=== PATIENT | male | born 1965 | race Caucasian/White ===

== ENCOUNTER → 2016-12-12 | Outpatient (CLI) | payer BC ==
[2016-12-12 21:22] LABS: Basophils % (A) 1 %; CH 27.8; CHCM 32.1; Eosinophils # (A) 0.1 k/uL (0-0.7); Eosinophils % (A) 2 %; HDW 2.66; HGB 14.5 gm/dL (13.0-17.5); Luc % (Auto) 2; Lymphocytes % (A) 15 %; MCH 27.5 pg (25.0-35.0); MCHC 31.6 g/dL (31.0-37.0); MCV 86.9 fL (80.0-100.0); Mean Platelet Volume 9.5; Monocytes # (A) 0.3 k/uL (0-1.0); Monocytes % (A) 5 %; Neutrophils # (A) 4.7 k/uL (1.3-7.7); Neutrophils % (A) 75 %; RDW 12.1 % (11.5-15.5); WBC 6.3 k/uL (3.8-10.6); WBC (Perox) 6.61
[2016-12-12 21:32] LABS: ALT 51 U/L (21-72); AST 23 U/L (17-59); Alkaline Phosphatase 111 U/L (38-126); Anion Gap 14 mmol/L; Blood Urea Nitrogen 13 mg/dL (9-20); Calcium 9.7 mg/dL (8.4-10.2); Carbon Dioxide 27 mmol/L (22-30); Chloride 96 mmol/L (98-107); Cholesterol 170 mg/dL (<200); HDL Cholesterol 65 mg/dL (40-60); Non-African American GFR(MDRD) >60 (>60 ml/min/1.73 sqM); Sodium 137 mmol/L (137-145); Total Bilirubin 0.8 mg/dL (0.2-1.3); Total Protein 7.3 g/dL (6.3-8.2); Triglycerides 63 mg/dL (<150)
[2016-12-12 21:39] LABS: Glucose 500 mg/dL (74-99)
[2016-12-12 22:03] LABS: Hemoglobin A1C 13.6 % (4.2-6.1)
== END | disposition home or self-care (01) ==
LOC: MMGSC 11:13
PROVIDERS: ATTEND Family Medicine
DX: Z00.00 Encounter for general adult medical examination without abnormal findings (principal); Z12.5 Encounter for screening for malignant neoplasm of prostate; E11.9 Type 2 diabetes mellitus without complications; M27.2 Inflammatory conditions of jaws
CPT/HCPCS: 84439; 80053; 80061; 83036; 84443; 85025; 82043; 87070; 87205; 87075; 36415; G0103

== ENCOUNTER → 2017-03-12 | Outpatient (CLI) | payer BC ==
[2017-03-12 20:25] LABS: Hemoglobin A1C 8.3 % (4.2-6.1)
== END ==
LOC: MMGSC 11:36
PROVIDERS: ATTEND Family Medicine
DX: E11.9 Type 2 diabetes mellitus without complications (principal)
CPT/HCPCS: 36415; 83036

== ENCOUNTER → 2017-06-13 | Outpatient (CLI) | payer BC ==
[2017-06-13 20:15] LABS: Hemoglobin A1C 7.4 % (4.2-6.1)
== END | disposition home or self-care (01) ==
LOC: MMGSC 16:32
PROVIDERS: ATTEND Family Medicine
DX: E11.9 Type 2 diabetes mellitus without complications (principal)
CPT/HCPCS: 36415; 83036

== ENCOUNTER → 2017-09-19 | Outpatient (CLI) | payer BC ==
[2017-09-19 20:55] LABS: ALT 27 U/L (21-72); AST 22 U/L (17-59); Alkaline Phosphatase 50 U/L (38-126); Anion Gap 9 mmol/L; Blood Urea Nitrogen 13 mg/dL (9-20); Carbon Dioxide 28 mmol/L (22-30); Chloride 103 mmol/L (98-107); Cholesterol 155 mg/dL (<200); Glucose 97 mg/dL (74-99); HDL Cholesterol 64 mg/dL (40-60); Non-African American GFR(MDRD) >60 (>60 ml/min/1.73 sqM); Potassium 3.9 mmol/L (3.5-5.1); Sodium 140 mmol/L (137-145); Total Bilirubin 0.6 mg/dL (0.2-1.3); Total Protein 7.6 g/dL (6.3-8.2)
[2017-09-19 21:11] LABS: Calcium 9.9 mg/dL (8.4-10.2)
[2017-09-20 01:35] LABS: Urine Creatinine 100.2 mg/dL
== END ==
LOC: MMGSC 16:17
PROVIDERS: ATTEND Family Medicine
DX: E11.9 Type 2 diabetes mellitus without complications (principal); I10 Essential (primary) hypertension
CPT/HCPCS: 36415; 80053; 80061; 82043; 82570; 83036

== ENCOUNTER → 2017-09-27 | Outpatient (CLI) | payer BC ==
--- NOTE | 2017-09-27 07:50 | US ---
EXAMINATION TYPE: US abdomen complete DATE OF EXAM: 09/27/2017 COMPARISON: NONE CLINICAL HISTORY: Abd Pain R side R10.31. EXAM MEASUREMENTS: Liver Length: 13.5 cm Gallbladder Wall: 0.2 cm CBD: 0.2 cm Spleen: 9.9 cm Right Kidney: 11.3 x 4.4 x 5.4 cm Left Kidney: 11.2 x 5.5 x 5.3 cm Pancreas: Obscured by bowel gas Liver: there appears to be some focal fatty sparing adjacent to the gallbladder Gallbladder: dependant sludge Evidence for sonographic Oropeza's sign: No CBD: wnl Spleen: wnl Right Kidney: No hydronephrosis or masses seen Left Kidney: No hydronephrosis or masses seen Upper IVC: wnl Abd Aorta: wnl IMPRESSION: 1. Findings suggest fatty infiltration of the liver with focal fatty sparing near the gallbladder. 2. Gallbladder sludge.
== END ==
LOC: RADUSWWP 06:47
PROVIDERS: ATTEND Family Medicine
DX: K82.8 Other specified diseases of gallbladder (principal)
CPT/HCPCS: 76700

== ENCOUNTER 2017-11-19 08:42 | Day surgery (SDC) | payer BC ==
[2017-11-13 23:32] VITALS: BMI 23.2
[~2017-11-19 08:42] MED LIST: LACTATED RINGERS 1,000 ML IV SCH; LIDOCAINE 1% 20 ML VIAL (10MG/ML) FOR IV START INTRADERMA PRN
[2017-11-19 09:15] VITALS: RESP 16; TEMP 97.6
[2017-11-19 09:29] LABS: Glucose,Whole Blood 133 mg/dL (75-99)
[2017-11-19] MEDS ORDERED: PROPOFOL 10 MG/ML 20 ML VIAL IV ONE (09:48)
--- NOTE | 2017-11-19 10:17 | P.PCN ---
Date of Procedure: 11/19/17 Procedure(s) Performed: Procedure: Total colonoscopy. Preoperative diagnosis: Screening for neoplasia. Postoperative diagnosis: Exam within the colon and terminal ileum within normal limits. Preparation: HalfLytely prep. Sedation: Was provided by anesthesia. Brief clinical history: The patient is a 52-year-old male who is referred for this evaluation for screening for neoplasia. The patient had no prior colonoscopy. He has no change in bowel habits, bleeding or anemia. He has been having some right upper quadrant pains over the last few months with essentially negative workup and spontaneous improvement to a significant degree by this time. There is no family history of colon cancer. Procedure: With the patient on his left lateral decubitus position and after informed consent and adequate sedation, the perianal area was inspected and it did not show any fissures or fistulas. He were no masses felt on digital rectal examination. The Olympus CFQ 160L video colonoscope was then inserted in the rectum in the usual fashion and advanced to the cecum. I intubated the ileocecal valve and examined the terminal ileum. Terminal ileum and colon appeared healthy with no edema, erythema, friability, ulceration, exudation or spontaneous bleeding. No polyps or tumors were seen or any obvious diverticular disease or other pathology I retroflexed the endoscope in the rectum before the endoscope was withdrawn. The patient tolerated the procedure well. Plan: The patient was reassured. He will follow up with you as planned. I will be happy to see in the office as outpatient if his abdominal symptoms recur. Otherwise, for screening for colon neoplasia, I recommended repeat exam in 10 years.
[2017-11-19 10:34] VITALS: BP 117/79; PULSE 61
== END 2017-11-19 10:59 | disposition home or self-care (01) ==
LOC: ORWHC2ENDO 08:42
DX: R10.9 Unspecified abdominal pain (principal); E11.9 Type 2 diabetes mellitus without complications; Z79.84 Long term (current) use of oral hypoglycemic drugs; Z79.899 Other long term (current) drug therapy
CPT/HCPCS: 45378; J2704

== ENCOUNTER → 2018-01-09 | Outpatient (CLI) | payer BC ==
[2018-01-10 01:30] LABS: Hemoglobin A1C 7.1 % (4.0-6.0)
== END | disposition home or self-care (01) ==
LOC: MMGSC 16:35
PROVIDERS: ATTEND Family Medicine
DX: E11.9 Type 2 diabetes mellitus without complications (principal)
CPT/HCPCS: 36415; 83036

== ENCOUNTER → 2021-12-28 | Outpatient (CLI) | payer BC ==
--- NOTE | 2021-12-28 08:09 | US ---
EXAMINATION TYPE: US abdomen comp/pelvis limited DATE OF EXAM: 12/28/2021 COMPARISON: 09/27/2017 CLINICAL HISTORY: 56-year-old male R10.12 ABD PAIN. Intermittent left flank pain x month TECHNIQUE: Multiple sonographic images of the abdomen and bladder are obtained. FINDINGS: EXAM MEASUREMENTS: Liver Length: 15.5 cm Gallbladder Wall: 0.2 cm CBD: 0.4 cm Spleen: 10.5 cm Right Kidney: 10.5 x 4.4 x 5.6 cm Left Kidney: 10.0 x 5.1 x 4.7 cm Pancreas: obscured by overlying midline bowel gas Liver: increased echogenicity Gallbladder: Borderline distended, probably due to fasting state. No wall thickening, shadowing calc alphonso, or pericholecystic fluid. CBD: visualized portions wnl, limited by overlying bowel gas Spleen: wnl Right Kidney: Mild pelviectasis versus extra renal pelvis. No calyceal dilatation to suggest hydronep hrosis. Left Kidney: wnl Upper IVC: wnl Abd Aorta: proximal portion obscured by overlying bowel gas Bladder: wnl Bilateral Jets Seen yes IMPRESSION: 1. At least mild hepatic steatosis. 2. No fransisco hydronephrosis seen on either side. Both ureteral jets are visualized. 3. Borderline distended gallbladder probably due to fasting state. No gallstones or ancillary finding s of acute cholecystitis. 4. No biliary ductal dilatation.
== END | disposition home or self-care (01) ==
LOC: RADUSWWP 07:00
PROVIDERS: ATTEND Family Medicine
DX: K76.0 Fatty (change of) liver, not elsewhere classified (principal)
CPT/HCPCS: 76700; 76857

== ENCOUNTER → 2022-01-16 | Outpatient (CLI) | payer BC ==
[2022-01-16 16:40] LABS: African American GFR (CKD) >90 (>60 ml/min/1.73 sqM); Blood Urea Nitrogen 17 mg/dL (9-20); Non-African American GFR(CKD) >90 (>60 ml/min/1.73 sqM)
--- NOTE | 2022-01-16 21:23 | CT ---
EXAMINATION TYPE: CT abdomen pelvis w con DATE OF EXAM: 01/16/2022 COMPARISON: Ultrasound dated 12/28/2021 HISTORY: abnormal weight loss, RUQ pain CT DLP: 447.5 mGycm Automated exposure control for dose reduction was used. TECHNIQUE: Helical acquisition of images was performed from the lung bases through the pelvis. CONTRAST: Performed with Oral Contrast and with IV Contrast, patient injected with 100 mL of Isovue 300. FINDINGS: LUNG BASES: No significant abnormality is appreciated. LIVER/GB: Few tiny cysts are seen in segment 6 of the liver measuring up to 6 mm. No other definite h epatic focal lesion. Slightly hypodense hepatic parenchyma which could be related to mild hepatic marie atosis. Unremarkable gallbladder. PANCREAS: Severe atrophy and fatty infiltration of the entire pancreas. SPLEEN: No significant abnormality is seen. ADRENALS: No significant abnormality is seen. KIDNEYS: No significant abnormality is seen. FREE AIR: No free air is visualized. RETROPERITONEAL ADENOPATHY: None visualized REPRODUCTIVE ORGANS: No significant abnormality is seen URINARY BLADDER: Diffusely thickened urinary bladder wall which could be due to nondistention howeve r underlying cystitis cannot be excluded, please correlate clinically and with urinalysis results. PELVIC ADENOPATHY: None visualized. OSSEOUS STRUCTURES: Left L5 pars break without significant anterolisthesis or retrolisthesis. Degene rative changes of the lower thoracic and lower lumbar spine. Left superior acetabulum lucency with we ll-corticated margin without bone destruction measuring up to 2.3 cm, possibly representing a bone cy st. Further bone scan assessment can be considered if clinically required. Ankylosis of the sacroilia c joints. BOWEL: Unremarkable stomach and duodenum. Slightly thickened distal ileal loops, nonspecific. Malabs orption syndrome cannot be excluded, please correlate clinically and with lab results. Unremarkable s mall bowel otherwise. Scattered segments of nonspecific colonic wall thickening, for example the dist al transverse colon, for correlation with coloscopy results as underlying colonic lesion cannot be ex cluded. Fecal loading of the colon. Normal appendix. OTHER: Minimal arterial atherosclerotic calcifications. No sizable ascites. IMPRESSION: 1. Severe atrophic changes and fatty infiltration of the entire pancreas. 2. Scattered segments of mild colonic wall thickening as described above, nonspecific. Recommend janis elation with coloscopy results as a small colonic lesion cannot be excluded. 3. Indeterminate well-corticated lucency in the left acetabulum as described above, possibly benign. Further bone scan or MRI assessment can be considered. Other incidental findings as detailed above.
== END | disposition home or self-care (01) ==
LOC: RADCTMAIN 16:01
PROVIDERS: ATTEND Family Medicine
DX: R10.12 Left upper quadrant pain (principal); R63.4 Abnormal weight loss
CPT/HCPCS: 82565; 84520; 74177; 36415; Q9967

== ENCOUNTER → 2022-01-26 | Outpatient (CLI) | payer BC ==
--- NOTE | 2022-01-26 14:39 | NM ---
EXAMINATION TYPE: NM bone scan whole body DATE OF EXAM: 01/26/2022 COMPARISON: 01/16/2022 HISTORY: Left rib pain Delayed whole-body scanning was performed following the injection of 23.1 mCi Tc 99m MDP. Images acq uired 3 hours post injection. FINDINGS: Mild intensity uptake involving the mid and lower thoracic spine. Moderate uptake involving the left shoulder. Mild uptake involving the feet likely arthritic. IMPRESSION: 1. No abnormal uptake seen involving the rib cage. 2. Abnormal uptake involving the vertebral column appears to be degenerative when compared to the pre vious CT scan
== END | disposition home or self-care (01) ==
LOC: RADNMMAIN 10:32
PROVIDERS: ATTEND Family Medicine
DX: R63.4 Abnormal weight loss (principal); R93.89 Abnormal findings on diagnostic imaging of other specified body structures
CPT/HCPCS: 78306; A9503